=== PATIENT | male | born 1955 | race Caucasian/White ===

== ENCOUNTER 2017-06-21 21:00 | Emergency (ER) | payer OTHER ==
[2017-06-21] MEDS ORDERED: Sodium Chloride 0.9% 10 ML Syringe FLUSH PRN (21:11)
[2017-06-21 21:30] LABS: CHLORIDE,CL 104 mmol/L (98-107); SODIUM,NA 140 mmol/L (136-145)
--- NOTE | 2017-06-21 21:54 | EDM.PDOC ---
ED HPI GENERAL MEDICAL PROBLEM - General Chief Complaint: Chest Pain Stated Complaint: chest pain, "feeling funny earlier:" Time Seen by Provider: 06/21/17 21:00 Source of Information: Reports: Patient History Limitations: Reports: No Limitations - History of Present Illness INITIAL COMMENTS - FREE TEXT/NARRATIVE: Patient is a 61-year-old male who states he was working or he develops some chest discomfort could explain exactly but then he had some neck discomfort which lasted about 15 minutes and was diaphoretic patient continue working symptoms improved and now is here for evaluation Onset: Today Duration: Minutes:, Improving Location: Reports: Neck, Chest Quality: Reports: Ache Severity: Mild Improves with: Reports: Rest Worsens with: Reports: None Context: Reports: Sick Contact Associated Symptoms: Reports: Chest Pain, Diaphoresis - Related Data Allergies Allergy/AdvReac Type Severity Reaction Status Date / Time No Known Allergies Allergy Verified 06/21/17 21:21 Home Meds: Home Meds Enalapril [Vasotec] 10 mg PO DAILY 04/07/16 [History] Omeprazole Magnesium [Prilosec Otc] 20 mg PO DAILY 04/07/16 [History] ED ROS GENERAL - Review of Systems Review Of Systems: See Below Constitutional: Reports: Diaphoresis HEENT: Reports: No Symptoms Respiratory: Reports: No Symptoms Cardiovascular: Reports: Chest Pain Endocrine: Reports: No Symptoms GI/Abdominal: Reports: No Symptoms Musculoskeletal: Reports: No Symptoms Skin: Reports: No Symptoms Neurological: Reports: No Symptoms Psychiatric: Reports: No Symptoms ED EXAM, GENERAL - Physical Exam Exam: See Below Exam Limited By: No Limitations General Appearance: Alert, WD/WN, No Apparent Distress Ears: Normal External Exam, Normal Canal, Hearing Grossly Normal, Normal TMs Ear Exam: Bilateral Ear: Auricle Normal, Canal Normal, TM normal Nose: Normal Inspection, Normal Mucosa, No Blood Throat/Mouth: Normal Inspection, Normal Lips, Normal Teeth, Normal Gums, Normal Oropharynx, Normal Voice, No Airway Compromise Head: Atraumatic, Normocephalic Neck: Normal Inspection, Supple, Non-Tender, Full Range of Motion Respiratory/Chest: No Respiratory Distress, Lungs Clear, Normal Breath Sounds, No Accessory Muscle Use, Chest Non-Tender Cardiovascular: Normal Peripheral Pulses, Regular Rate, Rhythm, No Edema, No Gallop, No JVD, No Murmur, No Rub GI/Abdominal: Normal Bowel Sounds, Soft, Non-Tender, No Organomegaly, No Distention, No Abnormal Bruit, No Mass Back Exam: Normal Inspection, Full Range of Motion, NT Extremities: Normal Inspection, Normal Range of Motion, Non-Tender, No Pedal Edema, Normal Capillary Refill, Other (Bilateral superficial abrasions of the both arms and shoulders) Neurological: Alert, Oriented, CN II-XII Intact, Normal Cognition, Normal Gait, Normal Reflexes, No Motor/Sensory Deficits Psychiatric: Normal Affect, Normal Mood Skin Exam: Warm, Dry, Intact, Normal Color, No Rash Lymphatic: No Adenopathy Course - Vital Signs Last Recorded V/S: Last Vital Signs Temp 98.7 F 06/21/17 21:00 Pulse 67 06/21/17 23:10 Resp 19 06/21/17 22:55 BP 113/77 06/21/17 23:10 Pulse Ox 98 06/21/17 22:55 - Orders/Labs/Meds Orders: Active Orders 24 hr Category Date Time Status EKG Documentation Completion [RC] ASDIRECTED Care 06/21/17 21:10 Active Chest 2V [CR] Stat Exams 06/21/17 21:09 Taken Sodium Chloride 0.9% [Saline Flush] Med 06/21/17 21:11 Active 10 ml FLUSH ASDIRECTED PRN Saline Lock Insert [OM.PC] Routine Oth 06/21/17 21:11 Ordered Medication Orders Sodium Chloride (Saline Flush) 10 ml FLUSH ASDIRECTED PRN PRN Reason: Keep Vein Open Last Admin: 06/21/17 21:00 Dose: 10 ml Labs: Laboratory Tests 06/21/17 06/21/17 06/21/17 Range/Units 20:55 20:55 23:40 WBC 8.8 (4.0-10.2) K/uL RBC 5.13 (4.33-5.41) M/uL Hgb 14.6 (13.1-16.8) g/dL Hct 42.7 (39.0-49.0) % MCV 83.2 L (84.0-98.0) fL MCH 28.5 (28.2-33.3) pg MCHC 34.2 (31.7-36.0) g/dL RDW 14.1 (11.2-14.1) % Plt Count 198 (150-350) K/uL Neut % (Auto) 61.5 (45.0-80.0) % Lymph % (Auto) 28.0 (10.0-50.0) % Barber % (Auto) 8.0 (2.0-14.0) % Eos % (Auto) 2.4 (0.0-5.0) % Baso % (Auto) 0.1 (0.0-2.0) % Neut # (Auto) 5.42 (1.40-7.00) K/uL Lymph # (Auto) 2.47 (0.50-3.50) K/uL Barber # (Auto) 0.71 (0.00-1.00) K/uL Eos # (Auto) 0.21 (0.00-0.50) K/uL Baso # (Auto) 0.01 (0.00-0.20) K/uL Sodium 140 (136-145) mmol/L Potassium 3.8 (3.5-5.1) mmol/L Chloride 104 (98-107) mmol/L Carbon Dioxide 27.0 (21.0-32.0) mmol/L BUN 21 H (7-18) mg/dL Creatinine 0.96 (0.51-1.17) mg/dL Est Cr Clr Drug Dosing TNP Estimated GFR (MDRD) > 60 mL/min Glucose 111 H (74-106) mg/dL Calcium 8.6 (8.5-10.1) mg/dL Total Bilirubin 0.4 (0.2-1.0) mg/dL AST 21 (15-37) U/L ALT 40 (12-78) U/L Alkaline Phosphatase 66 (46-116) IU/L Troponin I 0.000 0.000 (0.000-0.056) ng/mL Total Protein 7.5 (6.4-8.2) g/dL Albumin 3.9 (3.4-5.0) g/dL Meds: Medications Generic Name Dose Route Start Last Admin Trade Name Freq PRN Reason Stop Dose Admin Sodium Chloride 10 ml 06/21/17 21:11 06/21/17 21:00 Saline Flush FLUSH 10 ml ASDIRECTED PRN Administration Keep Vein Open Discontinued Medications Generic Name Dose Route Start Last Admin Trade Name Freq PRN Reason Stop Dose Admin Aspirin 324 mg 06/21/17 21:57 06/21/17 22:02 Aspirin PO 06/21/17 21:58 324 mg ONETIME ONE Administration Departure - Departure Time of Disposition: 00:30 Disposition: Home, Self-Care 01 Clinical Impression: Atypical chest pain Referrals: PCP,Unknown [Primary Care Provider] - Forms: ED Department Discharge Care Plan Goals: Troponins 2 were negative at 0.000 at this time I feel that this is not cardiac in nature but will proceed with a Persantine Cardiolite stress test - My Orders Last 24 Hours: My Active Orders 06/21/17 21:09 Chest 2V [CR] Stat 06/21/17 21:10 EKG Documentation Completion [RC] ASDIRECTED 06/21/17 21:11 Sodium Chloride 0.9% [Saline Flush] 10 ml FLUSH ASDIRECTED PRN Saline Lock Insert [OM.PC] Routine - Assessment/Plan Last 24 Hours: My Active Orders 06/21/17 21:09 Chest 2V [CR] Stat 06/21/17 21:10 EKG Documentation Completion [RC] ASDIRECTED 06/21/17 21:11 Sodium Chloride 0.9% [Saline Flush] 10 ml FLUSH ASDIRECTED PRN Saline Lock Insert [OM.PC] Routine
[2017-06-21] MEDS ORDERED: Aspirin 81 MG Tab.Chew PO ONE (21:57)
[2017-06-22 01:48] VITALS: BP 117/73
== END 2017-06-22 00:40 | disposition home or self-care (01) ==
LOC: LL.ED 21:00
DX: R07.89 Other chest pain (principal); Z79.899 Other long term (current) drug therapy
CPT/HCPCS: 36000; 36415; 71020; 80053; 84484; 85025; 93005; 99285; A9270; J7050

== ENCOUNTER 2021-03-25 12:16 | Emergency (ER) | payer OTHER ==
[2021-03-25 12:23] VITALS: BP 136/87; PULSE 80
--- NOTE | 2021-03-25 12:32 | EDM.PDOC ---
ED HPI GENERAL MEDICAL PROBLEM - General Chief Complaint: Laceration Stated Complaint: lip laceration Time Seen by Provider: 03/25/21 12:25 Source of Information: Reports: Patient, Old Records ([facility] EMR. No paper hospital chart available.) History Limitations: Reports: No Limitations - History of Present Illness INITIAL COMMENTS - FREE TEXT/NARRATIVE: Patient drove himself to the emergency room via private automobile for evaluation of a lower lip laceration, which occurred at about noon today. The patient was working at his home with his horse when the horse kicked a wooden gate, which hit him in the lower lip. He complains of 2/10 minor pain at this time with no history of other significant injury, dental pain, facial injury, fall, neck/back pain, neurological deficits, or other complaints or injuries. He has not taken any medications or done any local treatments at this point. The patient denies any chest pain/pressure, heart flutter, dizziness, orthostasis, orthopnea, diaphoresis, paresthesias, recent decreased exercise tolerance, or any other anginal-type symptoms. No recent history of abdominal pain, heartburn, nausea, diarrhea, melena, gross hematochezia, or any food intolerance, including fatty foods, etc.. The patient also denies any recent fever, cough, wheezing, dyspnea, etc., although he has been having some mild URI symptoms with right-sided intermittent tinnitus during the last 10 days with no known exposure to infection. No history of recent headaches, visual changes, diplopia, change in mental status, or other change in neurological status. Onset: Today, Sudden Onset Date: 03/25/21 Onset Time: 12:00 Duration: Constant Location: Reports: Face (Lower lip). Denies: Head, Neck, Chest, Abdomen, Back, Pelvis, Upper Extremity, Left, Upper Extremity, Right, Radiates to Quality: Reports: Ache, Same as Previous Episode Severity: Mild Improves with: Reports: None Worsens with: Reports: None Associated Symptoms: Denies: Confusion, Chest Pain, Cough, Diaphoresis, Fever/Chills, Headaches, Loss of Appetite, Malaise, Nausea/Vomiting, Rash, Seizure, Shortness of Breath, Syncope, Weakness Treatments DIRECTOR OF COLLECTIONS: Reports: Other (see below) (None) Lower Lip Pain Score (Numeric/FACES): 2 - Related Data Allergies Allergy/AdvReac Type Severity Reaction Status Date / Time No Known Allergies Allergy Verified 03/25/21 12:17 Home Meds: Home Meds Enalapril [Vasotec] 10 mg PO DAILY 04/07/16 [History] Omeprazole Magnesium [Prilosec Otc] 20 mg PO DAILY PRN 04/07/16 [History] amLODIPine Besylate [Norvasc] 1 tab PO DAILY 03/25/21 [History] Past Medical History HEENT History: Reports: Cataract, Impaired Vision, Retinal Detachment, Other (See Below) Other HEENT History: Patient wears glasses. Cardiovascular History: Reports: Cardiomyopathy, Hypertension, Other (See Below) Other Cardiovascular History: Left atrial enlargement with grade 1 diastolic dysfunction by echocardiogram in 2017 as below. Respiratory History: Reports: None Gastrointestinal History: Reports: GERD Genitourinary History: Reports: Renal Calculus, Other (See Below) Other Genitourinary History: Right-sided nephrolithiasis and renal cyst by renal ultrasound on 06/29/2019 with no history of urolithiasis, stone passage, etc. Musculoskeletal History: Reports: Arthritis, Osteoarthritis Endocrine/Metabolic History: Reports: Obesity/BMI 30+ - Infectious Disease History Infectious Disease History: Reports: Chicken Pox, Other (See Below). Denies: Novel Coronavirus (J&J immunization in about November 2020) Other Infectious Disease History: [place] virus diagnosed on 04/12/2016. - Past Surgical History HEENT Surgical History: Reports: Cataract Surgery, Detached Retina, Other (See Below) Other HEENT Surgeries/Procedures: Bilateral cataract surgery in about 2004. Cardiovascular Surgical History: Reports: None Respiratory Surgical History: Reports: None GI Surgical History: Reports: Appendectomy, Hernia, Inguinal, Other (See Below) Other GI Surgeries/Procedures: Bilateral inguinal hernia repair in about 1989. Appendectomy in 1976. - Past Imaging History Past Imaging History: Reports: Cardiac Echo (08/08/2017 with ejection fraction of 65-75% and otherwise findings as above.), Carotid US (06/29/2019.), Stress Testing (Negative Cardiolite stress test on 06/30/2017 with ejection fraction of 68-70%.), Ultrasound (06/29/2019bilateral renal.) Social & Family History - Family History Cardiac: Reports: Afib, Arrhythmia, CAD, Heart Failure, Heart Murmur, HI, Pacemaker, Other (See Below) Other Cardiac Family History: Mother with PTCA/stent in her late 70s with no known HI. Father with atrial fibrillation, diffuse valvular disorder, CHF, and pacemaker placement. Maternal grandfather with fatal HI in his late 70s. - Tobacco Use Tobacco Use Status *Q: Never Tobacco User Tobacco Use Within Last Twelve Months: No Used Tobacco, but Quit: No Smoking Cessation Information Provided To Patient: No Second Hand Smoke Exposure: No Second Hand Smoke Education Provided: No - Caffeine Use Caffeine Use: Reports: Coffee - Living Situation & Occupation Living situation: Reports: , with Family Occupation: Employed (Part-time pharmacist) ED ROS GENERAL - Review of Systems Review Of Systems: Comprehensive ROS is negative, except as noted in HPI. ED EXAM, SKIN/RASH Exam: See Below Exam Limited By: No Limitations General Appearance: WD/WN, No Apparent Distress Eye Exam: Bilateral Eye: EOMI, Normal Fundi, Normal Inspection (Patient is wearing glasses. No vertigo or nystagmus), PERRL Ears: Normal External Exam, Normal Canal (Moderate cerumen in the EACs bilaterally), Hearing Grossly Normal, Normal TMs Nose: Normal Mucosa, No Blood, Clear Rhinorrhea (Mild bilateral) Throat/Mouth: Normal Gums, Normal Oropharynx, Normal Voice, No Airway Compromise. No: Normal Lips (1 cm in length superficial laceration over the mid to lower lip), Normal Teeth (No sign of dental injury or local palpation pain), Dysphagia, Perioral Cyanosis Head: Atraumatic, Normocephalic. No: Facial Swelling, Facial Tenderness Neck: Normal Inspection, Supple, Non-Tender, Full Range of Motion. No: Lymphadenopathy (L), Lymphadenopathy (R), Thyromegaly Respiratory/Chest: No Respiratory Distress, Lungs Clear, Normal Breath Sounds, No Accessory Muscle Use, Chest Non-Tender. No: Pleural Rub, Retractions Cardiovascular: Normal Peripheral Pulses, Regular Rate, Rhythm, No Edema, No Gallop, No JVD, No Murmur, No Rub. No: Gallop/S3, Gallop/S4, Friction Rub Peripheral Pulses: 2+: Radial (L), Radial (R) GI/Abdominal: Normal Bowel Sounds, Soft, Non-Tender, No Organomegaly, No Distention, No Abnormal Bruit, No Mass, Pelvis Stable, Other (Obese). No: Guarding (Male) Exam: Deferred Rectal (Males) Exam: Deferred Back Exam: Normal Inspection, Full Range of Motion. No: CVA Tenderness (L), CVA Tenderness (R), Muscle Spasm Extremities: Normal Inspection, Normal Range of Motion, Non-Tender, No Pedal Edema, Normal Capillary Refill. No: Jose L's Sign Neurological: Alert, Oriented, CN II-XII Intact, Normal Cognition, Normal Gait, No Motor/Sensory Deficits Psychiatric: Normal Affect, Normal Mood Skin: No Rash, Wound/Incision (As above). No: Diaphoretic Location, Skin: Face (Lower lip) Characteristics: Linear Associated features: Tenderness (Minimal as above), Swelling (Minimal) Lymphatic: No Adenopathy ED SKIN PROCEDURES - Laceration/Wound Repair Lower Mid-Anterior Other Appearance: Subcutaneous, Linear, Clean Distal NVT: Neuro & Vascular Intact, No Tendon Injury Anesthetic Type: Local Local Anesthesia - Lidocaine (Xylocaine): 1% Plain Local Anesthetic Volume: 3cc Skin Prep: Providone-Iodine (Betadine) Saline Irrigation (cc's): 0 Exploration/Debridement/Repair: Wound Explored, In a Bloodless Field, Explored to Base, No Foreign Material Found Closed with: Sutures Lac/Wound length In cm: 1.0 Suture Size: 5-0 # of Sutures: 3 Suture Type: Nylon, Interrupted, Simple Drain Placement: No Sterile Dressing Applied: Nurse Tetanus Status Addressed: Yes Complications: No Course - Vital Signs Last Recorded V/S: Last Vital Signs Temp 36.3 C 03/25/21 12:21 Pulse 80 03/25/21 12:21 Resp 18 03/25/21 12:21 BP 136/87 03/25/21 12:21 Pulse Ox 95 03/25/21 12:21 Vital Signs - 24 hr 03/25/21 12:21 Temperature [ 36.3 C Temporal] Pulse, 80 Peripheral [ Pulse Oximetry] Respiratory 18 Rate Blood Pressure 136/87 [Left Upper Arm ] O2 Sat by Pulse 95 Oximetry - Orders/Labs/Meds Orders: Active Orders 24 hr Category Date Time Status Obtain Past Medical Record [OM.PC] Routine Oth 03/25/21 12:32 Active Labs: None Meds: Medications Discontinued Medications Generic Name Dose Route Start Last Admin Trade Name Freq PRN Reason Stop Dose Admin Diphtheria/Tetanus/Acell Pertussis 0.5 ml 03/25/21 12:34 03/25/21 12:42 Diphtheria,Pertussis(Acell),Tetanus Vaccine 0.5 Ml Syringe IM 03/25/21 12:35 0.5 ml .ONCE ONE Administration Lidocaine HCl 5 ml 03/25/21 12:33 03/25/21 12:42 Lidocaine 1% 5 Ml Sdv INJECT 03/25/21 12:34 5 ml ONETIME ONE Administration Neomycin/Polymyxin/Bacitracin 1 each 03/25/21 12:32 03/25/21 12:42 Bacitracin/Neomycin/Polymyxin B Oint 0.9 Gm U/D Packet TOP 03/25/21 12:33 1 each ONETIME ONE Administration - Radiology Interpretation Free Text/Narrative:: None Departure - Departure Time of Disposition: 13:03 Disposition: Home, Self-Care 01 Condition: Good Clinical Impression: Laceration, Peptic reflux disease Hypertension Qualifiers: Hypertension type: essential hypertension Qualified Code(s): I10 - Essential (primary) hypertension - Discharge Information *PRESCRIPTION DRUG MONITORING PROGRAM REVIEWED*: Not Applicable *COPY OF PRESCRIPTION DRUG MONITORING REPORT IN PATIENT ELLY: Not Applicable Instructions: Laceration Care, Adult, [id number], Sutures, Bette, or Adhesive Wound Closure, [id number] Referrals: Virginia Eli PA [Primary Care Provider] - Forms: ED Department Discharge Additional Instructions: 1. Follow up with your regular provider in 5-7 days for suture removal as directed. Bring these discharge instructions with you to that visit. 2. Tylenol 650 mg by mouth every 4 hours and/or OTC ibuprofen 2-3 tabs by mouth every 6 hours with food as directed./needed. You may stagger these medications for 48-72 hours only, which essentially means that you are receiving a pain medication about every 2 hours. 3. Antibacterial soap wash/soak with subsequent antibacterial dressing such as Neosporin, etc. as directed 2 times per day until the wound or laceration site completely heals. Keep the area clean and dry with activity restrictions as discussed. Never use hydrogen peroxide for wound care. 4. Immediately after this visit verify that your cellular telephone's voicemail has been activated and is empty. Also verify that your home telephone's answering machine is operating properly and has space to receive messages. Note that it is sometimes necessary for us to be able to contact you at a later date to discuss your medical care. 5. Please remember that we are ALWAYS here for you and want to answer any questions you may have. Feel free to call the hospital any time and we call you back [place]. Sepsis Event Note (ED) - Evaluation Sepsis Screening Result: No Definite Risk - Focused Exam Vital Signs: Vital Signs Temp Pulse Resp BP Pulse Ox 03/25/21 12:21 36.3 C 80 18 136/87 95 - Problem List & Annotations (1) Laceration SNOMED Code(s): 299791980 Code(s): KUC5119 - Status: Acute Priority: High Onset Date: 03/25/21 Annotation/Comment:: Excellent results with laceration repair as above. Last Td on 03/17/2012 by patient history with DTaP given in the emergency room. Activity restrictions, wound care, etc. were discussed. (2) Hypertension SNOMED Code(s): 14611370 Code(s): I10 - ESSENTIAL (PRIMARY) HYPERTENSION Status: Chronic Priority: Medium Annotation/Comment:: Blood pressures under good control in the emergency room and by history. Continue current medical therapy. Qualifiers: Hypertension type: essential hypertension Qualified Code(s): I10 - Essential (primary) hypertension (3) Peptic reflux disease SNOMED Code(s): 772861824 Code(s): K21.9 - GASTRO-ESOPHAGEAL REFLUX DISEASE WITHOUT ESOPHAGITIS Status: Chronic Priority: Medium Annotation/Comment:: Stable by patient history with current medical therapy - Problem List Review Problem List Initiated/Reviewed/Updated: Yes - My Orders Last 24 Hours: My Active Orders 03/25/21 12:32 Obtain Past Medical Record [OM.PC] Routine - Assessment/Plan Last 24 Hours: My Active Orders 03/25/21 12:32 Obtain Past Medical Record [OM.PC] Routine Assessment:: As above Plan: As above. Extensive precautions were given to the patient, who is in agreement with the treatment plan. See Patient Instructions for further treatment and plan.
[2021-03-25] MEDS: Bacitracin/Neomycin/Polymyxin B Oint 0.9 GM U/D Packet TOP ONE (12:42)
[2021-03-25] MEDS: Diphtheria,Pertussis(Acell),Tetanus Vaccine 0.5 ML Syringe IM ONE (12:42)
== END 2021-03-25 13:03 | disposition home or self-care (01) ==
LOC: LL.ED 12:16
DX: S01.511A Laceration without foreign body of lip, initial encounter (principal); Z23 Encounter for immunization; I10 Essential (primary) hypertension; E66.9 Obesity, unspecified; Z79.899 Other long term (current) drug therapy; W22.8XXA Striking against or struck by other objects, initial encounter; Y92.009 Unspecified place in unspecified non-institutional (private) residence as the place of occurrence of the external cause
CPT/HCPCS: 12011; 90471; 90715; 99282-25; 99283

== ENCOUNTER 2024-09-04 14:38 | Emergency (ER) | payer MEDICARE, OTHER ==
[2024-09-04] MEDS: Acetaminophen/HYDROcodone 325-10 MG Tab PO ONE (15:12)
[2024-09-04] MEDS: Diclofenac Sodium 1% Gel 100 GM Tube TOP ONE (15:13)
[2024-09-04 17:00] VITALS: BP 158/97; PULSE 72
== END 2024-09-04 17:00 | disposition home or self-care (01) ==
LOC: LL.ED 14:38
DX: S49.92XA Unspecified injury of left shoulder and upper arm, initial encounter (principal); S79.912A Unspecified injury of left hip, initial encounter; I10 Essential (primary) hypertension; E66.9 Obesity, unspecified; Z90.49 Acquired absence of other specified parts of digestive tract; Z79.899 Other long term (current) drug therapy; W00.9XXA Unspecified fall due to ice and snow, initial encounter
CPT/HCPCS: 73030; 73523; 99283; 99284; A9270

== ENCOUNTER 2025-05-21 22:59 | Emergency (ER) | payer MEDICARE, OTHER ==
[2025-05-21 23:09] LABS: BASOPHILS ABSOLUTE AUTO 0.01 K/uL (0.00-0.20); BASOPHILS PERCENT AUTO 0.1 % (0.0-2.0); EOSINOPHILS ABSOLUTE AUTO 0.21 K/uL (0.00-0.50); EOSINOPHILS PERCENT AUTO 2.2 % (0.0-5.0); IMMATURE GRAN ABSOLUTE AUTO 0.28 10^3/uL (0.00-0.04); IMMATURE GRAN PERCENT AUTO 3.0 % (0.0-0.4); LYMPHOCYTES ABSOLUTE AUTO 3.61 K/uL (0.50-3.50); LYMPHOCYTES PERCENT AUTO 38.6 % (10.0-50.0); MONOCYTES ABSOLUTE AUTO 0.65 K/uL (0.00-1.00); MONOCYTES PERCENT AUTO 7.0 % (2.0-14.0); NEUTROPHILS ABSOLUTE AUTO 4.59 K/uL (1.40-7.00); NEUTROPHILS PERCENT AUTO 49.1 % (45.0-80.0); PLATELET COUNT,PLT 290 K/uL (150-350); RED BLOOD CELL COUNT 5.05 M/uL (4.33-5.41); RED CELL DISTRIBUTION WIDTH 13.2 % (11.2-14.1); WHITE BLOOD CELL COUNT,WBC 9.4 K/uL (4.0-10.2)
[2025-05-21] MEDS: Ondansetron 4 MG/2 ML SDV IVPUSH ONE (23:15)
[2025-05-21 23:26] LABS: INR 1.1 (0.9-1.1); PTT,PARTIAL THROMBOPLSTIN TIME 23.4 SEC (23.8-34.4)
[2025-05-21 23:30] LABS: ALANINE AMINOTRANSFERASE,ALT 24.0 U/L (12-78); ASPARTATE AMNIOTRANSFERASE,AST 15.0 U/L (15-37); BILIRUBIN TOTAL 0.3 mg/dL (0.2-1.0); BLOOD UREA NITROGEN,BUN 23.0 mg/dL (7-18); CARBON DIOXIDE,CO2 23.7 mmol/L (21.0-32.0); CHLORIDE,CL 103.0 mmol/L (98-107); CREATININE 1.32 mg/dL (0.51-1.17); EST CRCL DRUG DOSING (CG) 53.77 mL/min; ESTIMATED GFR 58.0 mL/min (>=60); GLUCOSE RANDOM 164.0 mg/dL (70-99); PHOSPHORUS 4.6 mg/dL (2.6-4.7); POTASSIUM,K 3.3 mmol/L (3.5-5.1); PROTEIN TOTAL,TP 7.3 g/dL (6.4-8.2); SODIUM,NA 141.0 mmol/L (136-145)
[2025-05-22] MEDS ORDERED: Sodium Chloride 0.9% 10 ML Syringe FLUSH PRN ×2 (00:54→00:55)
[2025-05-22 01:45] VITALS: BP 129/79; PULSE 67
== END 2025-05-22 02:20 ==
LOC: LL.ED 22:59
DX: I46.9 Cardiac arrest, cause unspecified (principal); I10 Essential (primary) hypertension; E66.9 Obesity, unspecified; Z91.09 Other allergy status, other than to drugs and biological substances; Z79.899 Other long term (current) drug therapy; Z86.16 Personal history of COVID-19; Z90.49 Acquired absence of other specified parts of digestive tract; Z68.35 Body mass index [BMI] 35.0-35.9, adult
CPT/HCPCS: 36415; 71045; 80053; 82947; 83605; 83735; 84100; 84484; 85025; 85610; 85730; 92950; 93005; 96361; 96374; 99285; A9270; J2405; J7030; 93010; 99284